=== PATIENT | female | born 1985 | race Caucasian/White ===

== ENCOUNTER 2017-06-19 21:49 | Emergency (ER) | payer BC, MEDICAID ==
[~2017-06-19] VITALS: Ht 160 cm; Wt 80.3 kg
[2017-06-19 22:00] VITALS: BP 123/57
--- NOTE | 2017-06-19 22:08 | NUR ---
Pt c/o insect bites on both legs, multiple red lesions from scratching noted as well as white bumps, itching, but no pain. Pt states that exterminators sprayed for mosquitos and mites on Wednesday, these started after that. Pt denies CP, SOB, dizziness, n/v, no other complaints, no distress noted.
--- NOTE | 2017-06-19 22:19 | NUR ---
Gave pt RX and d/c instructions, pt verbalized understanding.
== END 2017-06-19 22:22 | disposition home or self-care (01) ==
LOC: ER 21:51
DX: R21 Rash and other nonspecific skin eruption (principal)
CPT/HCPCS: 99283; A4606; Z7610

== ENCOUNTER 2018-09-05 20:49 | Emergency (ER) | payer MEDICAID, OTHER ==
[~2018-09-05] VITALS: Ht 160 cm; Wt 79.4 kg
[2018-09-05 21:06] VITALS: BP 124/66
[2018-09-05] MEDS ORDERED: TETRACAINE HCL/PF 0.5% UD 2 ML BOTTLE ONE (22:02)
[2018-09-05] MEDS ORDERED: FLUORESCEIN SODIUM OPHTH 1 EA STRIP ONE (22:02)
[2018-09-05] MEDS ORDERED: TETRACAINE HCL/PF 0.5% UD 2 ML BOTTLE OP ONE (23:00)
[2018-09-05] MEDS ORDERED: TETRACAINE HCL/PF 0.5% UD 2 ML BOTTLE RIGHTEYE ONE (23:30)
[2018-09-05] MEDS ORDERED: FLUORESCEIN SODIUM OPHTH 1 EA STRIP OP ONE (23:30)
== END 2018-09-05 23:20 | disposition home or self-care (01) ==
LOC: ER 20:49
DX: H57.89 Other specified disorders of eye and adnexa (principal)